=== PATIENT | male | born 1950 | race Caucasian/White ===

== ENCOUNTER → 2020-11-06 | Outpatient (CLI) | payer OTHER ==
[~2020-11-06] MED LIST: MONT10TA10 PO; PRAV20TA2 PO
== END ==
LOC: M LABSMTC 10:00
PROVIDERS: ATTEND Anesthesiology
DX: Z01.812 Encounter for preprocedural laboratory examination (principal); Z20.822 Contact with and (suspected) exposure to COVID-19

== ENCOUNTER 2020-11-11 07:27 | Day surgery (SDC) | payer BC ==
[~2020-11-11] VITALS: Ht 172.7 cm; Wt 80.3 kg
[~2020-11-11 07:27] MED LIST changes: +LIDOCAINE 2% 100MG/5ML SDV (FOR ANES.) As Ordered ONE; +NS 1,000 ML IV ONE; +propofoL 200 MG/20 ML VIAL As Ordered ONE
--- NOTE | 2020-11-11 08:52 | ROOR ---
Patient Name: Mikal Cleary Procedure Date: 11/11/2020 8:31 AM Date of : 1950 Age: 70 Room: [facility] Gender: Male Note Status: Finalized Procedure: Colonoscopy Indications: High risk colon cancer surveillance: Personal history of colonic polyps Providers: Clark TAYLOR MD Referring MD: Aguilar Whitten MD Requesting Provider: Medicines: Monitored Anesthesia Care Complications: No immediate complications. Procedure: Pre-Anesthesia Assessment: - The heart rate, respiratory rate, oxygen saturations, blood pressure, adequacy of pulmonary ventilation, and response to care were monitored throughout the procedure. The Colonoscope was introduced through the anus and advanced to the terminal ileum, with identification of the appendiceal orifice and IC valve. The colonoscopy was performed without difficulty. The patient tolerated the procedure well. The quality of the bowel preparation was good. Findings: The perianal and digital rectal examinations were normal. Mild sigmoid diverticulosis and small internal hemorrhoids. The exam was otherwise without abnormality on direct and retroflexion views. Impression: - Mild sigmoid diverticulosis and small internal hemorrhoids. - The examination was otherwise normal on direct and retroflexion views. - No specimens collected. Recommendation: - Repeat colonoscopy in 5 years for surveillance. Procedure Code(s): --- Professional --- 30544, Colonoscopy, flexible; diagnostic, including collection of specimen(s) by brushing or washing, when performed (separate procedure) Diagnosis Code(s): --- Professional --- Z86.010, Personal history of colonic polyps CPT copyright 2019 [employer]. All rights reserved. The codes documented in this report are preliminary and upon election assistant review may be revised to meet current compliance requirements. Clark Taylor MD Clark TAYLOR MD 11/11/2020 8:52:15 AM Electronically signed by Clark TAYLOR MD Number of Addenda: 0 Note Initiated On: 11/11/2020 8:31 AM Estimated Blood Loss: Estimated blood loss: none.
[2020-11-11 09:05] VITALS: BP 121/71
== END 2020-11-11 09:14 | disposition home or self-care (01) ==
LOC: M OPP 07:27
PROVIDERS: ATTEND Internal Medicine Gastroenterology
DX: Z12.11 Encounter for screening for malignant neoplasm of colon (principal); Z86.010 Personal history of colon polyps; K57.30 Diverticulosis of large intestine without perforation or abscess without bleeding; K64.8 Other hemorrhoids; Z79.82 Long term (current) use of aspirin; Z79.899 Other long term (current) drug therapy

== ENCOUNTER → 2021-01-07 | Outpatient (REF) | payer BC ==
[~2021-01-07] MED LIST changes: -LIDOCAINE 2% 100MG/5ML SDV (FOR ANES.) As Ordered ONE; -NS 1,000 ML IV ONE; -propofoL 200 MG/20 ML VIAL As Ordered ONE
[2021-01-07 17:58] LABS: BLOOD UREA NITROGEN 16 MG/DL (7-18); CREATININE FOR GFR 0.73 MG/DL (0.70-1.30); GLOMERULAR FILTRATION RATE > 60.0 (>42)
== END ==
LOC: M PLALAB 16:45
PROVIDERS: ATTEND Physical Medicine & Rehabilitation
DX: M48.07 Spinal stenosis, lumbosacral region (principal); M47.27 Other spondylosis with radiculopathy, lumbosacral region

== ENCOUNTER → 2021-01-09 | Outpatient (CLI) | payer BC ==
[~2021-01-09] MED LIST changes: +PROHANCE 279.3MG/ML 15ML VIAL As Ordered ONE; +PROHANCE 279.3MG/ML 5ML VIAL As Ordered ONE
--- NOTE | 2021-01-09 09:38 | REP ---
INDICATION: SPINAL STENOSIS LUMBOSACRAL REGION. COMPARISON: MRI lumbar spine 06/29/2019. TECHNIQUE: Multiple sequences obtained in the axial, coronal and sagittal planes prior to and following the intravenous administration of 16 mL ProHance. FINDINGS: There is no evidence of pelvic mass or adenopathy. Urinary bladder is [id number] distended and appears essentially unremarkable. Noted is again made of degenerative changes of the lower lumbar spine as seen on prior MRI. The visualized osseous structures are otherwise unremarkable with no bone marrow edema and no abnormal bone marrow enhancement. No enhancing mass or nodule is seen in the pelvis. There is no free fluid. There is mild bilateral greater trochanteric tendonobursitis. IMPRESSION: No pelvic mass, adenopathy or free fluid. Degenerative changes lower lumbar spine as visualized on prior MRI 06/29/2019. There is mild bilateral greater trochanteric tendonobursitis. <Electronically signed by Dariel Cisse > 01/09/21 0934
== END ==
LOC: M RAD 07:47
PROVIDERS: ATTEND Physical Medicine & Rehabilitation
DX: M48.07 Spinal stenosis, lumbosacral region (principal); M70.61 Trochanteric bursitis, right hip; M70.62 Trochanteric bursitis, left hip
CPT/HCPCS: 72197; A9576

== ENCOUNTER → 2021-04-17 | Outpatient (REF) | payer BC ==
[~2021-04-17] MED LIST changes: -PROHANCE 279.3MG/ML 15ML VIAL As Ordered ONE; -PROHANCE 279.3MG/ML 5ML VIAL As Ordered ONE
[2021-04-17 12:43] LABS: HEMATOCRIT 49.8 % (42.0-52.0); HEMOGLOBIN 16.7 g/dl (13.5-17.5); MEAN CORPUSCULAR HEMOGLOBIN 32.9 pg (27.0-33.0); MEAN CORPUSCULAR HGB CONC 33.5 g/dl (32.0-36.5); MEAN CORPUSCULAR VOLUME 98.2 fl (80.0-96.0); PLATELET COUNT, AUTOMATED 230 10^3/uL (150-450); RED BLOOD COUNT 5.07 10^6/uL (4.30-6.10); WHITE BLOOD COUNT 7.5 10^3/uL (4.0-10.0)
[2021-04-17 13:47] LABS: BLOOD UREA NITROGEN 12 MG/DL (7-18); CREATININE FOR GFR 0.68 MG/DL (0.70-1.30); GLUCOSE, FASTING 84 MG/DL (70-100)
[2021-04-17 13:48] LABS: ALBUMIN 3.7 GM/DL (3.2-5.2); ALT/SGPT 42 U/L (12-78); BILIRUBIN,TOTAL 0.8 MG/DL (0.2-1.0); CARBON DIOXIDE LEVEL 29 MEQ/L (21-32); CHLORIDE LEVEL 104 MEQ/L (98-107); CHOLESTEROL LEVEL 211 MG/DL (<200); CHOLESTEROL RISK RATIO 3.637 (<5); FREE T4 0.93 NG/DL (0.76-1.46); GLOMERULAR FILTRATION RATE > 60.0 (>42); HDL CHOLESTEROL 58 MG/DL (>40); LDL CHOLESTEROL 134 MG/DL (<100); NON-HDL-C 153 MG/DL; POTASSIUM SERUM 4.3 MEQ/L (3.5-5.1); SODIUM LEVEL 138 MEQ/L (136-145); TOTAL PROTEIN 7.2 GM/DL (6.4-8.2); TRIGLYCERIDES LEVEL 93 MG/DL (<150)
[2021-04-17 14:52] LABS: HEMOGLOBIN A1c 5.1 %
== END ==
LOC: M SFHCADAM 08:01
PROVIDERS: ATTEND Family Medicine
DX: J30.2 Other seasonal allergic rhinitis (principal); E78.5 Hyperlipidemia, unspecified; R73.03 Prediabetes; Z12.5 Encounter for screening for malignant neoplasm of prostate
CPT/HCPCS: 80053; 80061; 83036; 84439; 84443; 85027; G0103

== ENCOUNTER → 2022-05-07 | Outpatient (CLI) | payer BC ==
[~2022-05-07] MED LIST changes: -MONT10TA10 PO; +MONT10TA97 PO
[2022-05-07 11:08] LABS: HEMOGLOBIN A1c 5.2 %
[2022-05-07 11:29] LABS: ALBUMIN 3.8 GM/DL (3.2-5.2); ALT/SGPT 32 U/L (12-78); BILIRUBIN,TOTAL 0.7 MG/DL (0.2-1.0); BLOOD UREA NITROGEN 12 MG/DL (7-18); CALCIUM LEVEL 9.1 MG/DL (8.8-10.2); CARBON DIOXIDE LEVEL 31 MEQ/L (21-32); CHLORIDE LEVEL 102 MEQ/L (98-107); CHOLESTEROL LEVEL 232 MG/DL (<200); CHOLESTEROL RISK RATIO 3.741 (<5); CREATININE FOR GFR 0.79 MG/DL (0.70-1.30); GLOMERULAR FILTRATION RATE > 60.0 (>42); GLUCOSE, FASTING 90 MG/DL (70-100); HDL CHOLESTEROL 62 MG/DL (>40); LDL CHOLESTEROL 151 MG/DL (<100); NON-HDL-C 170 MG/DL; POTASSIUM SERUM 4.8 MEQ/L (3.5-5.1); SODIUM LEVEL 135 MEQ/L (136-145); TOTAL PROTEIN 7.1 GM/DL (6.4-8.2); TRIGLYCERIDES LEVEL 95 MG/DL (<150)
== END ==
LOC: M PLALAB 07:20
PROVIDERS: ATTEND Family Medicine
DX: S20.369A Insect bite (nonvenomous) of unspecified front wall of thorax, initial encounter (principal); X58.XXXA Exposure to other specified factors, initial encounter; Y92.9 Unspecified place or not applicable
CPT/HCPCS: 36415; 80053; 80061; 83036; 86618; G0103

== ENCOUNTER → 2022-06-16 | Outpatient (CLI) | payer BC | LOC: M CARPUL 08:36 | PROVIDERS: ATTEND Family Medicine | DX: I08.0 Rheumatic disorders of both mitral and aortic valves (principal) ==

== ENCOUNTER → 2022-07-22 | Outpatient (REF) | payer BC ==
[2022-07-22 18:01] LABS: MAGNESIUM LEVEL 1.9 MG/DL (1.8-2.4)
[2022-07-22 18:03] LABS: ALKALINE PHOSPHATASE 43 U/L (46-116); ALT/SGPT 47 U/L (7.0-40); AST/SGOT 33 U/L (<34); BILIRUBIN,TOTAL 0.5 MG/DL (0.3-1.2); BLOOD UREA NITROGEN 13 MG/DL (9-23); CALCIUM LEVEL 9.3 MG/DL (8.3-10.6); CARBON DIOXIDE LEVEL 29 MMOL/L (20-31); CHLORIDE LEVEL 103 MMOL/L (98-107); CHOLESTEROL LEVEL 147 MG/DL (<200); CHOLESTEROL RISK RATIO 2.71 (<5); CREATININE FOR GFR 0.75 MG/DL (0.70-1.30); GLOMERULAR FILTRATION RATE > 60.0 (>42); GLUCOSE, FASTING 72 MG/DL (74-106); HDL CHOLESTEROL 54.1 MG/DL (>40); LDL CHOLESTEROL 72.5 MG/DL (<100); NON-HDL-C 93 MG/DL; POTASSIUM SERUM 4.5 MMOL/L (3.5-5.1); SODIUM LEVEL 140 MMOL/L (136-145); TRIGLYCERIDES LEVEL 102 MG/DL (<150)
[2022-07-22 18:08] LABS: TOTAL 25(OH) VITAMIN D 86.4 NG/ML (20.0-100.0)
[2022-07-22 18:09] LABS: THYROID STIMULATING HORMONE 1.642 uIU/ML (0.55-4.78)
[2022-07-22 18:10] LABS: FREE T4 1.33 NG/DL (0.89-1.76)
== END ==
LOC: M SFHCADAM 13:29
PROVIDERS: ATTEND Family Medicine
DX: E78.5 Hyperlipidemia, unspecified (principal); I34.0 Nonrheumatic mitral (valve) insufficiency; I49.9 Cardiac arrhythmia, unspecified; R00.0 Tachycardia, unspecified; M85.80 Other specified disorders of bone density and structure, unspecified site

== ENCOUNTER → 2023-05-24 | Outpatient (CLI) | payer BC ==
[2023-05-24 10:30] LABS: HEMATOCRIT 45.8 % (42.0-52.0); HEMOGLOBIN 15.2 g/dl (13.5-17.5); MEAN CORPUSCULAR HEMOGLOBIN 33.2 pg (27.0-33.0); MEAN CORPUSCULAR HGB CONC 33.2 g/dl (32.0-36.5); PLATELET COUNT, AUTOMATED 259 10^3/uL (150-450); RED BLOOD COUNT 4.58 10^6/uL (4.30-6.10)
[2023-05-24 10:32] LABS: ALBUMIN 3.8 G/DL (3.2-5.2); ALKALINE PHOSPHATASE 42 U/L (46-116); ALT/SGPT 35 U/L (7.0-40); AST/SGOT 30 U/L (<34); BILIRUBIN,TOTAL 0.8 MG/DL (0.3-1.2); BLOOD UREA NITROGEN 11 MG/DL (9-23); CALCIUM LEVEL 8.8 MG/DL (8.3-10.6); CARBON DIOXIDE LEVEL 32 MMOL/L (20-31); CHLORIDE LEVEL 107 MMOL/L (98-107); CHOLESTEROL LEVEL 146 MG/DL (<200); CHOLESTEROL RISK RATIO 2.72 (<5); CREATININE FOR GFR 0.79 MG/DL (0.70-1.30); GLOMERULAR FILTRATION RATE > 60.0 (>42); GLUCOSE, FASTING 90 MG/DL (74-106); HDL CHOLESTEROL 53.6 MG/DL (>40); LDL CHOLESTEROL 76.4 MG/DL (<100); NON-HDL-C 92.4 MG/DL; POTASSIUM SERUM 4.2 MMOL/L (3.5-5.1); SODIUM LEVEL 142 MMOL/L (136-145); TOTAL PROTEIN 6.9 G/DL (5.7-8.2); TRIGLYCERIDES LEVEL 80 MG/DL (<150)
[2023-05-24 10:36] LABS: FREE T4 1.13 NG/DL (0.89-1.76); THYROID STIMULATING HORMONE 2.001 uIU/ML (0.55-4.78)
[2023-05-24 10:37] LABS: TOTAL 25(OH) VITAMIN D 66.6 NG/ML (20.0-100.0)
[2023-05-24 10:46] LABS: HEMOGLOBIN A1c 5.1 % (4.0-6.0)
== END ==
LOC: M PLALAB 07:29
PROVIDERS: ATTEND Family Medicine
DX: I48.91 Unspecified atrial fibrillation (principal); J30.2 Other seasonal allergic rhinitis; T45.2X1A Poisoning by vitamins, accidental (unintentional), initial encounter; E78.5 Hyperlipidemia, unspecified
CPT/HCPCS: 36415; 80053; 80061; 82306; 83036; 84439; 84443; 85027; G0103

== ENCOUNTER → 2024-05-11 | Outpatient (CLI) | payer BC ==
[~2024-05-11] MED LIST changes: +PROHANCE 279.3MG/ML 15ML VIAL ONE
== END ==
LOC: M PLAIMG 10:36
PROVIDERS: ATTEND Neurological Surgery
DX: M47.896 Other spondylosis, lumbar region (principal); M48.061 Spinal stenosis, lumbar region without neurogenic claudication; M41.86 Other forms of scoliosis, lumbar region; M51.26 Other intervertebral disc displacement, lumbar region
CPT/HCPCS: 72131; 72158; A9576

== ENCOUNTER → 2024-05-18 | Outpatient (CLI) | payer BC ==
[~2024-05-18] MED LIST changes: -PROHANCE 279.3MG/ML 15ML VIAL ONE
[2024-05-18 10:11] LABS: HEMATOCRIT 46.4 % (42.0-52.0); HEMOGLOBIN 15.5 g/dl (13.5-17.5); MEAN CORPUSCULAR HEMOGLOBIN 33.5 pg (27.0-33.0); MEAN CORPUSCULAR HGB CONC 33.4 g/dl (32.0-36.5); MEAN CORPUSCULAR VOLUME 100.2 fl (80.0-96.0); PLATELET COUNT, AUTOMATED 271 10^3/uL (150-450); RED BLOOD COUNT 4.63 10^6/uL (4.30-6.10); WHITE BLOOD COUNT 7.9 10^3/uL (4.0-10.0)
[2024-05-18 10:16] LABS: CHOLESTEROL RISK RATIO 2.96 (<5); LDL CHOLESTEROL 83.2 MG/DL (<100); PSA SCREENING 0.75 NG/ML (< 4.00)
[2024-05-18 10:21] LABS: FREE T4 1.23 NG/DL (0.89-1.76); THYROID STIMULATING HORMONE 2.586 uIU/ML (0.55-4.78); TOTAL 25(OH) VITAMIN D 52.2 NG/ML (20.0-100.0)
[2024-05-18 10:36] LABS: HEMOGLOBIN A1c 5.1 % (4.0-6.0)
== END ==
LOC: M PLALAB 07:13
PROVIDERS: ATTEND Family Medicine
DX: I48.91 Unspecified atrial fibrillation (principal); J30.2 Other seasonal allergic rhinitis; E78.5 Hyperlipidemia, unspecified; I49.5 Sick sinus syndrome; R73.03 Prediabetes; Z12.5 Encounter for screening for malignant neoplasm of prostate; T45.2X1A Poisoning by vitamins, accidental (unintentional), initial encounter
CPT/HCPCS: 36415; 80061; 82306; 83036; 84439; 84443; 85027; G0103

== ENCOUNTER → 2024-05-22 | Outpatient (REF) | payer BC ==
[2024-05-22 18:50] LABS: ALBUMIN 4.1 G/DL (3.2-5.2); ALKALINE PHOSPHATASE 43 U/L (46-116); ALT/SGPT 38 U/L (7.0-40); AST/SGOT 23 U/L (<34); BILIRUBIN,TOTAL 0.7 MG/DL (0.3-1.2); BLOOD UREA NITROGEN 12 MG/DL (9-23); CALCIUM LEVEL 9.5 MG/DL (8.3-10.6); CARBON DIOXIDE LEVEL 29 MMOL/L (20-31); CHLORIDE LEVEL 104 MMOL/L (98-107); CHOLESTEROL LEVEL 158 MG/DL (<200); CHOLESTEROL RISK RATIO 2.71 (<5); CREATININE FOR GFR 0.76 MG/DL (0.70-1.30); GLOMERULAR FILTRATION RATE > 60.0 (>42); GLUCOSE, FASTING 75 MG/DL (74-106); HDL CHOLESTEROL 58.3 MG/DL (>40); LDL CHOLESTEROL 78.3 MG/DL (<100); NON-HDL-C 99.7 MG/DL; POTASSIUM SERUM 4.2 MMOL/L (3.5-5.1); PSA SCREENING 0.69 NG/ML (< 4.00); SODIUM LEVEL 138 MMOL/L (136-145); THYROID STIMULATING HORMONE 1.845 uIU/ML (0.55-4.78); TOTAL PROTEIN 7.2 G/DL (5.7-8.2); TRIGLYCERIDES LEVEL 107 MG/DL (<150)
[2024-05-22 18:51] LABS: TOTAL 25(OH) VITAMIN D 55.7 NG/ML (20.0-100.0)
== END ==
LOC: M SFHCADAM 12:42
PROVIDERS: ATTEND Family Medicine
DX: T45.2X1A Poisoning by vitamins, accidental (unintentional), initial encounter (principal); E78.5 Hyperlipidemia, unspecified; I49.5 Sick sinus syndrome; Z12.5 Encounter for screening for malignant neoplasm of prostate

== ENCOUNTER → 2024-07-05 | Outpatient (REF) | payer BC ==
[2024-07-05 13:15] LABS: BASO % 0.3 % (0.0-1.0); EOS # 0.2 10^3/uL (0.0-0.5); HEMATOCRIT 44.7 % (42.0-52.0); HEMOGLOBIN 14.9 g/dl (13.5-17.5); LYMPH # 1.4 10^3/uL (1.5-5.0); LYMPH % 18.6 % (24.0-44.0); MEAN CORPUSCULAR HEMOGLOBIN 33.1 pg (27.0-33.0); MEAN CORPUSCULAR HGB CONC 33.3 g/dl (32.0-36.5); MEAN CORPUSCULAR VOLUME 99.3 fl (80.0-96.0); MONO # 0.6 10^3/uL (0.0-0.8); MONO % 8.5 % (2.0-8.0); NEUTROPHILS # 5.1 10^3/uL (1.5-8.5); NEUTROPHILS % 68.9 % (36.0-66.0); PLATELET COUNT, AUTOMATED 257 10^3/uL (150-450); WHITE BLOOD COUNT 7.4 10^3/uL (4.0-10.0)
== END ==
LOC: M SFHCADAM 09:40
PROVIDERS: ATTEND Family Medicine
DX: D72.829 Elevated white blood cell count, unspecified (principal)

== ENCOUNTER → 2024-07-06 | Outpatient (CLI) | payer BC | LOC: M CARPUL 11:01 | PROVIDERS: ATTEND Family Medicine | DX: I35.0 Nonrheumatic aortic (valve) stenosis (principal) ==

== ENCOUNTER → 2024-08-03 | Outpatient (CLI) | payer BC | LOC: M RAD 12:06 | PROVIDERS: ATTEND Nurse Practitioner | DX: M54.16 Radiculopathy, lumbar region (principal) ==

== ENCOUNTER → 2024-10-26 | Outpatient (CLI) | payer BC | LOC: M RAD 12:32 | PROVIDERS: ATTEND Nurse Practitioner Family | DX: Z98.1 Arthrodesis status (principal); M47.27 Other spondylosis with radiculopathy, lumbosacral region ==

== ENCOUNTER → 2024-10-29 | Outpatient (CLI) | payer BC ==
[2024-10-29 17:39] LABS: BASO % 0.3 % (0.0-1.0); EOS # 0.2 10^3/uL (0.0-0.5); EOS % 1.8 % (0.0-3.0); HEMATOCRIT 37.1 % (42.0-52.0); HEMOGLOBIN 11.8 g/dl (13.5-17.5); LYMPH # 2.8 10^3/uL (1.5-5.0); LYMPH % 23.7 % (24.0-44.0); MEAN CORPUSCULAR HEMOGLOBIN 28.6 pg (27.0-33.0); MEAN CORPUSCULAR HGB CONC 31.8 g/dl (32.0-36.5); MEAN CORPUSCULAR VOLUME 89.8 fl (80.0-96.0); MONO # 1.3 10^3/uL (0.0-0.8); MONO % 11.4 % (2.0-8.0); NEUTROPHILS # 7.3 10^3/uL (1.5-8.5); PLATELET COUNT, AUTOMATED 453 10^3/uL (150-450); RED BLOOD COUNT 4.13 10^6/uL (4.30-6.10); WHITE BLOOD COUNT 11.7 10^3/uL (4.0-10.0)
[2024-10-29 18:02] LABS: ALBUMIN 2.8 G/DL (3.2-5.2); ALKALINE PHOSPHATASE 63 U/L (40-129); ALT/SGPT 29 U/L (7.0-40); AST/SGOT 13 U/L (<34); BILIRUBIN,TOTAL 0.2 MG/DL (0.3-1.2); BLOOD UREA NITROGEN 19 MG/DL (9-23); CALCIUM LEVEL 8.8 MG/DL (8.3-10.6); CARBON DIOXIDE LEVEL 27 MMOL/L (20-31); CHLORIDE LEVEL 101 MMOL/L (98-107); CREATININE FOR GFR 0.69 MG/DL (0.70-1.30); GLOMERULAR FILTRATION RATE > 60.0 (>42); GLUCOSE, FASTING 132 MG/DL (74-106); IRON (FE) 14 UG/DL (65-175); POTASSIUM SERUM 4.4 MMOL/L (3.5-5.1); SODIUM LEVEL 135 MMOL/L (136-145); TOTAL PROTEIN 6.6 G/DL (5.7-8.2)
[2024-10-29 18:03] LABS: PERCENT SATURATION 4.9 % (19.7-50.0); TOTAL IRON BINDING CAPACITY 288 UG/DL (250-425)
[2024-10-29 18:04] LABS: FERRITIN 74.9 NG/ML (10.5-307.3)
== END ==
LOC: M PLALAB 15:32
PROVIDERS: ATTEND Orthopaedic Surgery
DX: M25.551 Pain in right hip (principal)

== ENCOUNTER → 2024-11-02 | Outpatient (REF) | payer BC ==
[2024-11-02 14:05] LABS: BASO % 0.2 % (0.0-1.0); EOS # 0.1 10^3/uL (0.0-0.5); EOS % 0.8 % (0.0-3.0); HEMATOCRIT 36.3 % (42.0-52.0); HEMOGLOBIN 11.7 g/dl (13.5-17.5); LYMPH # 1.5 10^3/uL (1.5-5.0); LYMPH % 10.2 % (24.0-44.0); MEAN CORPUSCULAR HEMOGLOBIN 28.8 pg (27.0-33.0); MEAN CORPUSCULAR HGB CONC 32.2 g/dl (32.0-36.5); MEAN CORPUSCULAR VOLUME 89.4 fl (80.0-96.0); NEUTROPHILS # 11.7 10^3/uL (1.5-8.5); PERCENT SATURATION 8.1 % (19.7-50.0); PLATELET COUNT, AUTOMATED 455 10^3/uL (150-450); RED BLOOD COUNT 4.06 10^6/uL (4.30-6.10); WHITE BLOOD COUNT 14.5 10^3/uL (4.0-10.0)
[2024-11-02 14:08] LABS: FERRITIN 111.2 NG/ML (10.5-307.3)
== END ==
LOC: M SFHCADAM 09:11
PROVIDERS: ATTEND Physician Assistant
DX: D64.9 Anemia, unspecified (principal)

== ENCOUNTER → 2024-11-09 | Outpatient (REF) | payer BC ==
[2024-11-09 14:13] LABS: BASO % 0.3 % (0.0-1.0); EOS # 0.1 10^3/uL (0.0-0.5); EOS % 0.5 % (0.0-3.0); HEMATOCRIT 39.3 % (42.0-52.0); HEMOGLOBIN 12.4 g/dl (13.5-17.5); LYMPH # 1.9 10^3/uL (1.5-5.0); LYMPH % 12.2 % (24.0-44.0); MEAN CORPUSCULAR HEMOGLOBIN 28.2 pg (27.0-33.0); MEAN CORPUSCULAR HGB CONC 31.6 g/dl (32.0-36.5); MEAN CORPUSCULAR VOLUME 89.3 fl (80.0-96.0); MONO % 6.6 % (2.0-8.0); NEUTROPHILS # 12.2 10^3/uL (1.5-8.5); NEUTROPHILS % 79.6 % (36.0-66.0); PLATELET COUNT, AUTOMATED 510 10^3/uL (150-450); WHITE BLOOD COUNT 15.4 10^3/uL (4.0-10.0)
[2024-11-09 14:18] LABS: IRON (FE) 18 UG/DL (65-175)
[2024-11-09 14:19] LABS: PERCENT SATURATION 6.3 % (19.7-50.0); TOTAL IRON BINDING CAPACITY 285 UG/DL (250-425)
[2024-11-09 14:20] LABS: BLOOD UREA NITROGEN 13 MG/DL (9-23); CALCIUM LEVEL 9.2 MG/DL (8.3-10.6); CARBON DIOXIDE LEVEL 27 MMOL/L (20-31); CHLORIDE LEVEL 99 MMOL/L (98-107); CREATININE FOR GFR 0.68 MG/DL (0.70-1.30); GLOMERULAR FILTRATION RATE > 60.0 (>42); GLUCOSE, FASTING 147 MG/DL (74-106); POTASSIUM SERUM 4.5 MMOL/L (3.5-5.1); SODIUM LEVEL 138 MMOL/L (136-145)
[2024-11-09 14:21] LABS: FERRITIN 114.5 NG/ML (10.5-307.3)
== END ==
LOC: M SFHCADAM 09:12
PROVIDERS: ATTEND Physician Assistant
DX: D50.9 Iron deficiency anemia, unspecified (principal)

== ENCOUNTER → 2024-11-12 | Outpatient (CLI) | payer BC | LOC: M PLAIMG 09:48 | PROVIDERS: ATTEND Specialist/Technologist Athletic Trainer | DX: M25.531 Pain in right wrist (principal); S62.021K Displaced fracture of middle third of navicular [scaphoid] bone of right wrist, subsequent encounter for fracture with nonunion; M19.031 Primary osteoarthritis, right wrist ==

== ENCOUNTER → 2024-11-14 | Outpatient (REF) | payer BC ==
[2024-11-14 17:45] LABS: ALBUMIN 2.9 G/DL (3.2-5.2); ALKALINE PHOSPHATASE 62 U/L (40-129); ALT/SGPT 32 U/L (7.0-40); AST/SGOT 19 U/L (<34); BILIRUBIN,TOTAL 0.3 MG/DL (0.3-1.2); BLOOD UREA NITROGEN 20 MG/DL (9-23); CALCIUM LEVEL 8.8 MG/DL (8.3-10.6); CARBON DIOXIDE LEVEL 26 MMOL/L (20-31); CHLORIDE LEVEL 98 MMOL/L (98-107); CREATININE FOR GFR 0.75 MG/DL (0.70-1.30); GLOMERULAR FILTRATION RATE > 60.0 (>42); GLUCOSE, FASTING 132 MG/DL (74-106); POTASSIUM SERUM 4.5 MMOL/L (3.5-5.1); SODIUM LEVEL 133 MMOL/L (136-145); TOTAL PROTEIN 7.1 G/DL (5.7-8.2)
== END ==
LOC: M SFHCADAM 14:54
PROVIDERS: ATTEND Physician Assistant
DX: D50.9 Iron deficiency anemia, unspecified (principal)

== ENCOUNTER → 2024-11-14 | Outpatient (REF) | payer BC ==
[2024-11-14 17:45] LABS: URIC ACID 6.4 MG/DL (3.7-9.2)
[2024-11-14 17:47] LABS: C REACTIVE PROTEIN QUANTITATIV 7.77 MG/DL (<1.0); RHEUMATOID FACTOR QUANT < 3.5 IU/ML (<14)
[2024-11-21 15:12] LABS: ANA PATTERN Nuclear, Nucleolar (NEGATIVE); ANA SCREEN, IFA POSITIVE (NEGATIVE)
== END ==
LOC: M LABDRWAD 17:18
PROVIDERS: ATTEND Specialist/Technologist Athletic Trainer
DX: M25.531 Pain in right wrist (principal)

== ENCOUNTER → 2024-11-15 | Outpatient (CLI) | payer BC ==
[2024-11-15 16:23] LABS: APPEARANCE, URINE CLEAR (CLEAR); BACTERIA, URINE AUTO NEGATIVE (NEGATIVE); BILIRUBIN, URINE AUTO NEGATIVE (NEGATIVE); BLOOD, URINE BLOOD NEGATIVE (NEGATIVE); COLOR, URINE YELLOW (YELLOW); GLUCOSE, URINE (UA) AUTO NEGATIVE (NEGATIVE); KETONE, URINE AUTO NEGATIVE (NEGATIVE); LEUKOCYTE ESTERASE, URINE AUTO NEGATIVE (NEGATIVE); NITRITE, URINE AUTO NEGATIVE (NEGATIVE); PROTEIN, URINE AUTO NEGATIVE (NEGATIVE); RBC, URINE AUTO 1 /HPF (0-3); SPECIFIC GRAVITY URINE AUTO 1.025 (1.002-1.035); SQUAMOUS EPITHELIAL CELL UR AU 0 /HPF (0-6); UROBILINOGEN, URINE AUTO 0.2 mg/dL (0.0-2.0); WBC, URINE AUTO 0 /HPF (0-3)
[2024-11-15 16:47] LABS: ALBUMIN 2.9 G/DL (3.2-5.2); ALKALINE PHOSPHATASE 62 U/L (40-129); ALT/SGPT 29 U/L (7.0-40); AST/SGOT 18 U/L (<34); BILIRUBIN,TOTAL 0.3 MG/DL (0.3-1.2); BLOOD UREA NITROGEN 21 MG/DL (9-23); CALCIUM LEVEL 8.9 MG/DL (8.3-10.6); CARBON DIOXIDE LEVEL 28 MMOL/L (20-31); CHLORIDE LEVEL 98 MMOL/L (98-107); CREATININE FOR GFR 0.78 MG/DL (0.70-1.30); GLOMERULAR FILTRATION RATE > 60.0 (>42); GLUCOSE, FASTING 124 MG/DL (74-106); POTASSIUM SERUM 4.2 MMOL/L (3.5-5.1); SODIUM LEVEL 135 MMOL/L (136-145)
[2024-11-20 19:52] LABS: LYME TOTAL ANTIBODY CIA 1.23 Index (<=0.90)
[2024-11-20 23:37] LABS: LYME AB IGG BY CIA 2.23 Index (<=0.90); LYME AB IGM BY CIA <= 0.90 Index (<=0.90)
== END ==
LOC: M RAD 15:22
PROVIDERS: ATTEND Physician Assistant Medical
DX: D72.829 Elevated white blood cell count, unspecified (principal); E88.09 Other disorders of plasma-protein metabolism, not elsewhere classified; D50.9 Iron deficiency anemia, unspecified; R79.82 Elevated C-reactive protein (CRP); R70.0 Elevated erythrocyte sedimentation rate

== ENCOUNTER → 2024-11-17 | Outpatient (CLI) | payer BC | LOC: M RAD 08:27 | PROVIDERS: ATTEND Specialist/Technologist Athletic Trainer | DX: R22.31 Localized swelling, mass and lump, right upper limb (principal) ==

== ENCOUNTER → 2024-11-19 | Outpatient (CLI) | payer BC | LOC: M CARPUL 17:32 | PROVIDERS: ATTEND Physician Assistant Medical | DX: I48.91 Unspecified atrial fibrillation (principal); D72.829 Elevated white blood cell count, unspecified; E88.09 Other disorders of plasma-protein metabolism, not elsewhere classified; D50.9 Iron deficiency anemia, unspecified; R79.82 Elevated C-reactive protein (CRP); R70.0 Elevated erythrocyte sedimentation rate; R76.8 Other specified abnormal immunological findings in serum; I35.0 Nonrheumatic aortic (valve) stenosis ==

== ENCOUNTER → 2024-12-25 | Outpatient (CLI) | payer BC ==
[2024-12-25 10:57] LABS: BASO % 0.3 % (0.0-1.0); EOS # 0.1 10^3/uL (0.0-0.5); EOS % 0.9 % (0.0-3.0); HEMATOCRIT 40.7 % (42.0-52.0); HEMOGLOBIN 12.9 g/dl (13.5-17.5); LYMPH % 26.9 % (24.0-44.0); MEAN CORPUSCULAR HEMOGLOBIN 28.3 pg (27.0-33.0); MEAN CORPUSCULAR HGB CONC 31.7 g/dl (32.0-36.5); MEAN CORPUSCULAR VOLUME 89.3 fl (80.0-96.0); MONO # 0.9 10^3/uL (0.0-0.8); MONO % 8.2 % (2.0-8.0); NEUTROPHILS % 62.9 % (36.0-66.0); PLATELET COUNT, AUTOMATED 396 10^3/uL (150-450); RED BLOOD COUNT 4.56 10^6/uL (4.30-6.10); WHITE BLOOD COUNT 11.2 10^3/uL (4.0-10.0)
[2024-12-25 11:21] LABS: URIC ACID 5.3 MG/DL (3.7-9.2)
[2024-12-25 11:24] LABS: ALBUMIN 3.3 G/DL (3.2-5.2); ALKALINE PHOSPHATASE 61 U/L (40-129); ALT/SGPT 27 U/L (7.0-40); AST/SGOT 19 U/L (<34); BILIRUBIN,TOTAL 0.4 MG/DL (0.3-1.2); BLOOD UREA NITROGEN 11 MG/DL (9-23); CARBON DIOXIDE LEVEL 29 MMOL/L (20-31); CHLORIDE LEVEL 103 MMOL/L (98-107); CREATININE FOR GFR 0.67 MG/DL (0.70-1.30); GLOMERULAR FILTRATION RATE > 90.0 (>42); GLUCOSE, FASTING 85 MG/DL (74-106); POTASSIUM SERUM 4.3 MMOL/L (3.5-5.1); SODIUM LEVEL 141 MMOL/L (136-145); TOTAL PROTEIN 7.2 G/DL (5.7-8.2)
== END ==
LOC: M PLALAB 09:01
PROVIDERS: ATTEND Family Medicine
DX: M25.431 Effusion, right wrist (principal)

== ENCOUNTER → 2024-12-25 | Outpatient (CLI) | payer BC ==
[2024-12-25 11:39] LABS: BASO % 0.2 % (0.0-1.0); EOS # 0.1 10^3/uL (0.0-0.5); EOS % 0.7 % (0.0-3.0); HEMATOCRIT 40.5 % (42.0-52.0); HEMOGLOBIN 12.7 g/dl (13.5-17.5); LYMPH # 3.1 10^3/uL (1.5-5.0); LYMPH % 26.6 % (24.0-44.0); MEAN CORPUSCULAR HEMOGLOBIN 28.1 pg (27.0-33.0); MEAN CORPUSCULAR HGB CONC 31.4 g/dl (32.0-36.5); MEAN CORPUSCULAR VOLUME 89.6 fl (80.0-96.0); MONO % 8.8 % (2.0-8.0); NEUTROPHILS # 7.4 10^3/uL (1.5-8.5); PLATELET COUNT, AUTOMATED 397 10^3/uL (150-450); RED BLOOD COUNT 4.52 10^6/uL (4.30-6.10); WHITE BLOOD COUNT 11.7 10^3/uL (4.0-10.0)
[2024-12-25 11:47] LABS: ERYTHROCYTE SEDIMENTATION RATE 83 mm/hr (0-20)
[2024-12-25 11:59] LABS: URIC ACID 5.3 MG/DL (3.7-9.2)
[2024-12-25 12:02] LABS: RHEUMATOID FACTOR QUANT < 3.5 IU/ML (<14)
[2024-12-25 12:03] LABS: CPK CREATINE PHOSPHOKINASE 79 U/L (46-171)
[2024-12-25 12:06] LABS: ALBUMIN 3.3 G/DL (3.2-5.2); ALKALINE PHOSPHATASE 61 U/L (40-129); ALT/SGPT 29 U/L (7.0-40); AST/SGOT 19 U/L (<34); BILIRUBIN,TOTAL 0.4 MG/DL (0.3-1.2); BLOOD UREA NITROGEN 11 MG/DL (9-23); CALCIUM LEVEL 8.9 MG/DL (8.3-10.6); CARBON DIOXIDE LEVEL 28 MMOL/L (20-31); CHLORIDE LEVEL 102 MMOL/L (98-107); CREATININE FOR GFR 0.65 MG/DL (0.70-1.30); FREE T4 1.42 NG/DL (0.89-1.76); GLOMERULAR FILTRATION RATE > 90.0 (>42); GLUCOSE, FASTING 84 MG/DL (74-106); POTASSIUM SERUM 4.3 MMOL/L (3.5-5.1); SODIUM LEVEL 139 MMOL/L (136-145); THYROID PEROXIDASE ANTIBODY 45 U/ML (<60.0); THYROID STIMULATING HORMONE 2.462 uIU/ML (0.55-4.78); TOTAL 25(OH) VITAMIN D 56.9 NG/ML (20.0-100.0); TOTAL PROTEIN 7.1 G/DL (5.7-8.2)
[2024-12-25 12:23] LABS: HEPATITIS B SURFACE ANTIGEN NEGATIVE (NEGATIVE)
[2024-12-25 12:43] LABS: HEPATITIS C VIRUS ABY INDEX < 0.02 INDEX (<0.8)
[2024-12-28 10:43] LABS: PROTEIN CREATININE RATIO 98 mg/g creat (25-148); T PROTEIN CREATININE RATIO 0.098 (0.025-0.148); UPEP CREATININE 92 mg/dL (20-320); UPEP TOTAL PROTEIN 9 mg/dL (5-25)
[2024-12-28 11:11] LABS: UPEP ALBUMIN 100 %; URINE ALPHA 1 GLOBULIN 0 %; URINE ALPHA 2 GLOBULIN 0 %; URINE BETA GLOBULIN 0 %; URINE GAMMA GLOBULIN 0 %
[2024-12-28 12:20] LABS: IgG P41 AB REACTIVE; IgG P66 AB NON REACTIVE; IgG P93 AB NON REACTIVE
[2024-12-28 12:21] LABS: IgG P18 AB NON REACTIVE; IgG P23 AB NON REACTIVE; IgG P28 AB NON REACTIVE; IgG P30 AB NON REACTIVE; IgG P39 AB NON REACTIVE; IgG P45 AB NON REACTIVE; IgG P58 AB NON REACTIVE
[2024-12-28 12:22] LABS: IgM P23 AB NON REACTIVE; IgM P39 AB NON REACTIVE; LYME IgG WB INTERPRETATION NEGATIVE (NEGATIVE); LYME IgM WB INTERPRETATION NEGATIVE (NEGATIVE)
[2024-12-28 12:24] LABS: ALBUMIN SPEP 3.7 g/dL (3.8-4.8); ALPHA-1-GLOBULINS SO 0.4 g/dL (0.2-0.3); ALPHA-2-GLOBULINS SO 0.9 g/dL (0.5-0.9); BETA 2 GLOBULIN 0.4 g/dL (0.2-0.5); BETA-GLOBULIN SO 0.5 g/dL (0.4-0.6); HEPATITIS B CORE ANTIBODY IGG NON REACTIVE (NON REACT); IgM P41 AB NON REACTIVE; T P ELECTROPHORESIS SO 7.1 g/dl (6.1-8.1)
[2024-12-28 12:25] LABS: GAMMA GLOBULINS SO 1.2 g/dL (0.8-1.7)
[2024-12-28 12:30] LABS: ANA SCREEN, IFA POSITIVE (NEGATIVE)
[2025-01-01 12:31] LABS: HLA-B27 NEGATIVE (NEGATIVE)
== END ==
LOC: M PLALAB 09:04
PROVIDERS: ATTEND Internal Medicine Rheumatology
DX: M06.4 Inflammatory polyarthropathy (principal); M25.531 Pain in right wrist; M25.551 Pain in right hip

== ENCOUNTER → 2025-02-26 | Outpatient (CLI) | payer BC ==
[~2025-02-26] MED LIST changes: -PRAV20TA2 PO; +PRAV20TA78 PO
[2025-02-26 14:01] LABS: BASO # 0.0 10^3/uL (0.0-0.2); BASO % 0.3 % (0.0-1.0); EOS # 0.0 10^3/uL (0.0-0.5); EOS % 0.2 % (0.0-3.0); LYMPH # 1.8 10^3/uL (1.5-5.0); LYMPH % 15.9 % (24.0-44.0); MONO # 0.9 10^3/uL (0.0-0.8); MONO % 7.6 % (2.0-8.0); NEUTROPHILS # 8.4 10^3/uL (1.5-8.5); NEUTROPHILS % 75.1 % (36.0-66.0); PLATELET COUNT, AUTOMATED 305 10^3/uL (150-450)
[2025-02-26 14:07] LABS: ERYTHROCYTE SEDIMENTATION RATE 42 mm/hr (0-20)
[2025-02-26 14:22] LABS: ALT/SGPT 28 U/L (7.0-40); AST/SGOT 24 U/L (<34); C REACTIVE PROTEIN QUANTITATIV 0.72 MG/DL (<1.0); CALCIUM LEVEL 8.9 MG/DL (8.3-10.6); CARBON DIOXIDE LEVEL 27 MMOL/L (20-31); CHLORIDE LEVEL 104 MMOL/L (98-107); CREATININE FOR GFR 0.76 MG/DL (0.70-1.30); GLOMERULAR FILTRATION RATE > 90.0 (>42); POTASSIUM SERUM 4.2 MMOL/L (3.5-5.1); SODIUM LEVEL 139 MMOL/L (136-145)
== END ==
LOC: M PLALAB 10:26
PROVIDERS: ATTEND Internal Medicine Rheumatology
DX: M06.4 Inflammatory polyarthropathy (principal)

== ENCOUNTER → 2025-06-27 | Outpatient (CLI) | payer BC ==
[2025-06-27 10:58] LABS: PLATELET COUNT, AUTOMATED 300 10^3/uL (150-450)
[2025-06-27 11:03] LABS: ALT/SGPT 29 U/L (7.0-40); AST/SGOT 32 U/L (<34); CALCIUM LEVEL 9.0 MG/DL (8.3-10.6); CARBON DIOXIDE LEVEL 27 MMOL/L (20-31); CHLORIDE LEVEL 102 MMOL/L (98-107); CHOLESTEROL LEVEL 153 MG/DL (<200); CHOLESTEROL RISK RATIO 2.68 (<5); CREATININE FOR GFR 0.74 MG/DL (0.70-1.30); GLOMERULAR FILTRATION RATE > 90.0 (>42); IRON (FE) 118 UG/DL (65-175); LDL CHOLESTEROL 78.9 MG/DL (<100); MAGNESIUM LEVEL 2.0 MG/DL (1.8-2.4); NON-HDL-C 96.1 MG/DL; PERCENT SATURATION 31.1 % (19.7-50.0); POTASSIUM SERUM 4.3 MMOL/L (3.5-5.1); SODIUM LEVEL 137 MMOL/L (136-145); TRIGLYCERIDES LEVEL 86 MG/DL (<150)
[2025-06-27 11:10] LABS: FREE T4 1.26 NG/DL (0.89-1.76)
== END ==
LOC: M PLALAB 07:34
PROVIDERS: ATTEND Family Medicine
DX: I48.91 Unspecified atrial fibrillation (principal); E78.5 Hyperlipidemia, unspecified; D63.8 Anemia in other chronic diseases classified elsewhere

== ENCOUNTER → 2025-07-03 | Outpatient (REF) | payer BC ==
[2025-07-03 14:19] LABS: VITAMIN B12 LEVEL 555 PG/ML (211-911)
[2025-07-03 14:31] LABS: ESTIMATED AVERAGE GLUCOSE 108.0 MG/DL (60-110)
[2025-07-04 17:46] LABS: PROTEIN, TOTAL SO 6.5 g/dL (6.1-8.1)
[2025-07-08 06:37] LABS: ALBUMIN SO 3.9 g/dL (3.8-4.8); ALPHA 1 GLOBULINS SO 0.3 g/dL (0.2-0.3); ALPHA 2 GLOBULINS SO 0.7 g/dL (0.5-0.9); BETA 2 GLOBULIN SO 0.3 g/dL (0.2-0.5); BETA GLOBULIN SO 0.5 g/dL (0.4-0.6); GAMMA GLOBULINS SO 0.8 g/dL (0.8-1.7)
== END ==
LOC: M SFHCADAM 09:20
PROVIDERS: ATTEND Family Medicine
DX: G60.8 Other hereditary and idiopathic neuropathies (principal)

== ENCOUNTER → 2025-07-12 | Outpatient (CLI) | payer BC ==
[2025-07-12 17:46] LABS: BASO # 0.0 10^3/uL (0.0-0.2); BASO % 0.3 % (0.0-1.0); EOS # 0.2 10^3/uL (0.0-0.5); EOS % 1.7 % (0.0-3.0); LYMPH # 2.5 10^3/uL (1.5-5.0); LYMPH % 27.5 % (24.0-44.0); MONO # 1.2 10^3/uL (0.0-0.8); MONO % 13.1 % (2.0-8.0); NEUTROPHILS # 5.1 10^3/uL (1.5-8.5); NEUTROPHILS % 56.8 % (36.0-66.0); PLATELET COUNT, AUTOMATED 358 10^3/uL (150-450)
[2025-07-12 18:06] LABS: C REACTIVE PROTEIN QUANTITATIV < 0.50 MG/DL (<1.0)
[2025-07-12 18:07] LABS: ALT/SGPT 29 U/L (7.0-40); AST/SGOT 26 U/L (<34); CALCIUM LEVEL 9.0 MG/DL (8.3-10.6); CARBON DIOXIDE LEVEL 28 MMOL/L (20-31); CHLORIDE LEVEL 104 MMOL/L (98-107); CREATININE FOR GFR 0.83 MG/DL (0.70-1.30); GLOMERULAR FILTRATION RATE > 90.0 (>42); POTASSIUM SERUM 4.6 MMOL/L (3.5-5.1); SODIUM LEVEL 140 MMOL/L (136-145)
== END ==
LOC: M PLALAB 15:08
PROVIDERS: ATTEND Internal Medicine Rheumatology
DX: M06.4 Inflammatory polyarthropathy (principal)